=== PATIENT | female | born 1965 | race Asian ===

== ENCOUNTER 2017-06-18 17:01 | Emergency (ER) | payer SELFPAY ==
[~2017-06-18] VITALS: Ht 170.2 cm; Wt 63.6 kg
[2017-06-18 17:08] VITALS: BP 117/77
== END 2017-06-18 19:05 | disposition left against medical advice (07) ==
LOC: EMS 17:04
DX: Z00.8 Encounter for other general examination (principal); Z53.21 Procedure and treatment not carried out due to patient leaving prior to being seen by health care provider